=== PATIENT | female | born 1940 | race Two or more races ===

== ENCOUNTER 2025-03-15 09:35 | Inpatient (IN) | payer OTHER, MEDICAID ==
[~2025-03-15] VITALS: Ht 152.4 cm; Wt 106.6 kg
[~2025-03-15 09:35] MED LIST: ALEN35TA18 PO; FERR1TAB17 PO; METF-1145 PO; VENL37.588 PO
[2025-03-15 09:45] VITALS: PULSE 95; RESP 10; O2SAT 88
[2025-03-15] MEDS: IPRATROPIUM BROM 0.5 MG/2.5ML INH SOL NEB ONE ×2 (09:48→09:49)
[2025-03-15] MEDS: ALBUTEROL SULF 2.5 MG/0.5ML(0.5%) NEB SOLN NEB ONE ×3 (09:49→11:19)
--- NOTE | 2025-03-15 09:49 | ED.PDOC ---
History of Present Illness HPI Comments 84-year-old female brought in by ambulance with prior history of hypertension, diabetes and chief complaint of shortness a breath. The patient was picked up from home. EMS report the on scene the daughter the patient Arana that the patient in his training stroke of he breathe for 1 hour and was recently d iagnosed with pneumonia. On scene the patient on 5L of home O2 of the saturation percentage of 70% NC, stated I feel like I am drowning with hypertension of the systolic 171. EMS know that the patient was only able to say 1 or 2 words on scene, as well as having wheezing. EMS state that the patient noted that she feels like she is drowning when she lays down. EN route the patient was given a CPAP on the marrow sitting and does saturation patient is improved to 92%, also with an IV established. Denies chills, fever, N/V/D, CP. No other associated symptoms, modifiers, recent injuries or sick contacts present at this time. Time Seen by MD: 09:40 Reviewed Notes: Nurses Notes, Last Sawyer Notes, Medications, Allergies Allergies: Coded Allergies: NO KNOWN ALLERGIES (Unverified , 03/15/25) Home Meds Reported Medications Glimepiride (Glimepiride) 2 Mg Tab, 1 TAB PO BID 03/15/25 Atorvastatin Calcium (ATORVASTATIN CALCIUM) 10 Mg Tab, 1 TAB PO DAILY 03/15/25 Empagliflozin (Jardiance) 25 Mg Tab, 1 TAB PO DAILY 03/15/25 Levothyroxine Sodium (Levothyroxine Sodium) 125 Mcg Tab, 1 TAB PO DAILY 03/15/25 Information Source: Emergency Med Personnel Mode of Arrival: EMS Severity: Moderate Timing: Minutes Duration: Since onset Prehospital treatment: C-Pap Past Medical History PAST MEDICAL HISTORY: DM, HTN Surgical History: Denies all surgeries TRAINING AND DEVELOPMENT ASSISTANT History: No Pertinent TRAINING AND DEVELOPMENT ASSISTANT History Family History Family History: Reviewed,noncontributory to illness, Unknown Social History Smoker: Non-Smoker Alcohol: Denies ETOH Use Drugs: Denies Drug Use Lives In: Home Constitutional: denies: chills, diaphoresis, fatigue, fever, malaise, sweats, weakness, others EENTM: denies: blurred vision, double vision, ear bleeding, ear discharge, ear drainage, ear pain, ear ringing, eye pain, eye redness, hearing loss, mouth pain, mouth swelling, nasal discharge, nose bleeding, nose congestion, nose pain, photophobia, tearing, throat pain, throat swelling, voice changes, others Respiratory: reports: shortness of breath, wheezing; denies: cough, hemoptysis, orthopnea, SOB at rest, SOB with excertion, stridor, others Cardiovascular: denies: chest pain, dizzy spells, diaphoresis, Dyspnea on ex ertion, edema, irregular heart beat, left arm pain, lightheadedness, palpitations, PND, syncope, others Gastrointestinal: denies: abdomen distended, abdominal pain, blood streaked bowels, constipated, diarrhea, dysphagia, difficulty swallowing, hematemesis, melena, nausea, poor appetite, poor fluid intake, rectal bleeding, rectal pain, vomiting, others Genitourinary: denies: abnormal vagina bleeding, burning, dyspareunia, dysuria, flank pain, frequency, hematuria, incontinence, pain, , vagina discharge, urgency, others Neurological: denies: dizziness, fainting, headache, left sided numbness, left sided weakness, numbness, paresthesia, pre-existing deficit, right sided numbness, right sided weakness, seizure, speech problems, tingling, tremors, weakness, others Musculoskeletal: denies: back pain, gout, joint pain, joint swelling, muscle pain, muscle stiffness, neck pain, others Integumetry: denies: bruises, change in color, change in hair/nails, dryness, laceration, lesions, lumps, rash, wounds, others Allergic/Immunocompromised: denies: Difficulty Healing, Frequent Infections, Hives, Itching, others Hematologic/Lymphatic: denies: anemia, blood clots, easy bleeding, easy bruising, swollen glands, others Endocrine: denies: excessive hunger, excessive sweating, excessive thirst, excessive urination, flushing, intolerance to cold, intolerance to heat, unexplained weight gain, unexplained weight loss, others Psychiatric: denies: anxiety, bipolar disorder, depression, hopeless, panic disorder, schizophrenia, sleepless, suicidal, others All Other Systems: Reviewed and Negative Physical Exam General Appearance: Moderate Distress, Normal HEENT: Normal ENT Inspection, Pharynx Normal, TMs Normal Neck: Full Range of Motion, Non-Tender, Normal, Normal Inspection Respiratory: Accessory Muscle Use, Chest Non-Tender, Respiratory Distress, Other (Coarse breath sounds) Cardiovascular: No Edema, No JVD, No Murmur, No Gallop, Normal Peripheral Pulses, Regular Rate/Rhythm Breast Exam: Deferred Gastrointestinal: No Organomegaly, Non Tender, No Pulsatile Mass, Normal Bowel Sounds, Soft Genitalia: Deferred Pelvic: Deferred Rectal: Deferred Extremities: No calf tenderness, Normal capillary refill, Normal inspection, Normal range of motion, Non-tender, No pedal edema Musculoskeletal : Apperance: Normal Neurologic: Alert, commercial director II-XII nml as Tested, No Motor Deficits, Normal Affect, Normal Mood, No Sensory Deficits Cerebellar Function: NOT DONE Reflexes: NOT DONE Skin: Dry, Normal Color, Warm Peripheral Pulses: 3+ Radial (R), 3+ Radial (L) Lymphatic: No Adenopathy Was a procedure done? Was a procedure done?: No Differential Dx Considerations may include: Pneumonia Electrolyte imbalance X-Ray, Labs, Meds, VS Vital Signs Date Time Temp Pulse Resp B/P (MAP) Pulse Ox O2 Delivery O2 Flow Rate FiO2 03/15/25 13:01 62 17 150/83 (105) 95 03/15/25 11:19 16 92 Oxymizer 5 N/A 03/15/25 11:00 98.5 57 11 153/48 (83) 95 98.5 03/15/25 10:42 55 03/15/25 10:02 146/51 03/15/25 09:49 16 94 Oxymizer 6 N/A 03/15/25 09:45 98.0 95 10 158/75 (102) 88 98.0 03/15/25 09:45 95 10 88 Oxymizer 6 N/A 03/15/25 09:36 98.7 65 24 158/75 (102) 100 98.7 Lab Test 03/15/25 13:18 03/15/25 11:26 03/15/25 11:07 03/15/25 10:43 Range/Units Troponin I High Sensitivity 22 20 </=34 ng/L POC Glucose 106 70-106 mg/dl Urine Color Light-yellow Yellow Urine Clarity Clear Clear Urine pH 5.5 5.0-9.0 Urine Specific Silva 1.012 1.001-1.035 Urine Protein Negative Negative Urine Ketones Negative Negative Urine Blood Negative Negative /uL Urine Nitrite Negative Negative Urine Bilirubin Negative Negative Urine Urobilinogen Normal Negative mg/dL Urine Leukocyte Esterase Negative Negative /uL Urine RBC None seen 0 - 4 /hpf Urine Microscopic WBC < 1 0-5 /HPF Urine Squamous Epithelial Cells None seen <5 /hpf Urine Bacteria None seen None Seen /hpf Urine Glucose Trace Normal mg/dL Test 03/15/25 10:05 03/15/25 09:55 Range/Units Blood Gas Specimen Type Arterial Blood Gas Sample Site Left radial Blood Gas Patient Temperature 37.0 Arterial Blood Date Drawn [id number] Arterial Blood pH 7.353 7.350-7.450 Arterial Blood Partial Pressure CO2 51.9 H 32.0-45.0 mmHg Arterial Blood Partial Pressure O2 71.6 L 83.0-108.0 mmHg Arterial Blood HCO3 28.2 H 21.0-28.0 mmol/L Arterial Blood Oxygen Saturation 91.2 L 94.0-98.0 % Arterial Blood Base Excess 2.3 -2.0-3.0 mmol/L Arterial Blood Oxyhemoglobin 89.1 L 94.0-98.0 % Arterial Blood Carboxyhemoglobin 2.0 H 0.5-1.5 % Arterial Blood Methemoglobin 0.3 0.0-1.5 % Ernesto Test Yes Blood Gas Total Hemoglobin 7.50 L 12.0-16.0 g/dL Blood Gas Liter Flow 6.00 Blood Gas Modality Oxymizer FiO2 % 52.0 White Blood Count 1.4 *L 4.4-10.8 10^3/uL Red Blood Count 1.90 L 4.0-5.20 10^6/uL Hemoglobin 7.1 L 12.2-16.2 g/dL Hematocrit 21.3 L 36.0-46.0 % Mean Corpuscular Volume 112.0 H 80.0-100.0 fL Mean Corpuscular Hemoglobin 37.1 H 28.0-32.0 pg Mean Corpuscular Hemoglobin Concent 33.2 32.0-36.0 g/dL Red Cell Distribution Width 16.9 H 11.8-14.3 % Platelet Count 232 140-450 10^3/uL Mean Platelet Volume 8.5 6.9-10.8 fL Neutrophils (%) (Auto) 37.0-80.0 % Lymphocytes (%) (Auto) 10.0-50.0 % Monocytes (%) (Auto) 0.0-12.0 % Basophils (%) (Auto) 0.0-2.0 % Neutrophils # (Auto) 1.6-8.6 10 ^3/uL Lymphocytes # (Auto) 0.4-5.4 10 ^3/uL Monocytes # (Auto) 0-1.3 10 ^3/uL Differential Total Cells Counted 100.0 100 Neutrophils % (Manual) 55 37.0-80.0 Band Neutrophils % (Manual) 2 Lymphocytes % (Manual) 40 10.0-50.0 Monocytes % (Manual) 3 0-12 Eosinophils % (Manual) 0 0-7 Basophils % (Manual) 0 0.0-2.0 Metamyelocytes % (manual) 0 Myelocytes % (Manual) 0 Promyelocytes % (Manual) 0 Blast Cells % (Manual) 0 Reactive Lymphocytes 0 Platelet Estimate Adequate Macrocytosis Slight Sodium Level 134 L 136-145 mmol/L Potassium Level 5.4 H 3.5-5.1 mmol/L Chloride Level 98 98-107 mmol/L Carbon Dioxide Level 27 20-31 mmol/L Anion Gap 9 5-15 Blood Urea Nitrogen 43 H 9-23 mg/dL Creatinine 2.55 H 0.550-1.02 mg/dL Glomerular Filtration Rate Calc 18 >90 mL/min BUN/Creatinine Ratio 16.9 10.0-20.0 Serum Glucose 76 74-106 mg/dL Hemoglobin A1c 5.5 <5.7 % A1C Lactic Acid Level 1.3 0.4-2.0 mmol/L Calcium Level 9.1 8.7-10.4 mg/dL Troponin I High Sensitivity 22 </=34 ng/L B-Type Natriuretic Peptide 529.94 0-100 pg/mL Triglycerides Level Pending Cholesterol Level Pending LDL Cholesterol Pending HDL Cholesterol Pending Thyroid Stimulating Hormone (TSH) 3.37 0.55-4.78 uIU/mL Current Medications Medications (Trade) Dose Ordered Sig/Johanne Route Start Time Stop Time Status Last Admin Magnesium Sulfate/ Dextrose 100 ml @ 100 mls/hr ONCE ONCE IV 03/15/25 09:45 03/15/25 10:44 DC 03/15/25 10:35 Methylprednisolone Sodium Succinate (Solu Medrol) 125 mg ONCE ONCE IV 03/15/25 09:45 03/15/25 09:46 DC 03/15/25 10:02 Albuterol (Ventolin Medneb) 5 mg ONCE ONCE NEB 03/15/25 09:45 03/15/25 09:46 DC 03/15/25 09:49 Ipratropium [place] (Atrovent Medneb) 0.5 mg ONCE ONCE NEB 03/15/25 09:45 03/15/25 09:46 DC 03/15/25 09:48 Furosemide (Lasix Injection) 40 mg ONCE ONCE IV 03/15/25 09:45 03/15/25 09:46 DC 03/15/25 10:02 Ceftriaxone Sodium 50 ml @ 100 mls/hr ONCE ONCE IV 03/15/25 10:45 03/15/25 11:14 DC 03/15/25 11:04 Azithromycin 250 ml @ 125 mls/hr ONCE ONCE IV 03/15/25 10:45 03/15/25 12:44 DC 03/15/25 11:40 Insulin Human Regular (InsuLIN R) 10 units ONCE ONCE IV 03/15/25 11:15 03/15/25 11:16 DC 03/15/25 12:17 Dextrose 50 ml ONCE ONCE IV 03/15/25 11:15 03/15/25 11:16 DC 03/15/25 12:16 Albuterol (Ventolin Medneb) 20 mg ONCE ONCE NEB 03/15/25 11:15 03/15/25 11:16 DC 03/15/25 11:19 Sodium Bicarbonate 50 ml ONCE ONCE IV 03/15/25 11:15 03/15/25 11:16 DC 03/15/25 12:07 Calcium Gluconate/ Sodium Chloride 50 ml @ 120 mls/hr ONCE ONCE IV 03/15/25 11:15 03/15/25 11:39 DC 03/15/25 11:40 Zirconium Oxide (Lokelma) 10 gm ONCE ONCE PO 03/15/25 11:15 03/15/25 11:16 DC 03/15/25 12:08 Patient alert. Shortness a breath. Using accessory muscles. BNP elevated. Potassium elevated. Kidney function elevated. Sepsis protocol. Blood culture lactic acid. Was given Rocephin azithromycin. Reviewed her history. Continue monitoring. [address] [address] Ph: [phone] DIAGNOSTIC IMAGING Diagnostic Imaging Report : [id number] Signed PATIENT: ADRIANA GARCIA ACCT: [id number] UNIT: [id number] : 1940 LOC: ER ROOM / BED: / AGE / SEX: 84 / F ADM STATUS: REG ER SERVICE 0940 ORDERING PHYSICIAN: JANIE CARRINGTON MD PROCEDURE(s): CXRP - CHEST PORTABLE REASON: sob ORDER NUMBER(s): [id number], ACCESSION NUMBER(s): [id number] XY CHEST PORTABLE, HISTORY: sob COMPARISON: None None TECHNICAL DATA: 1 view of the chest was obtained. FINDINGS: Lines and tubes: None Cardiomediastinal silhouette: enlarged Pulmonary vasculature: normal Lung expansion: normal Lung airspace: normal Lung interstitium: prominent Pleura: normal Pneumothorax: no Bones: Unremarkable Other: no IMPRESSION: Cardiomegaly with interstitial pulmonary edema. ATED BY: YOHAN OSULLIVAN MD DICTATED DATE/TIME: 03/15/25 102 SIGNED BY: YOHAN OSULLIVAN MD SIGNED DATE/TIME: 03/15/25 1022 CC: Time of 1ST Reevaluation: 10:10 Reevaluation 1ST: Unchanged Patient Education/Counseling: Diagnosis, Treatment, Prognosis Family Education/Counseling: No Family Present Sepsis Sepsis Reasesment Focused Exam Orders: Laboratory Tests 03/15/25 09:55: Lactic Acid Level 1.3 Departure 1 Departure Time of Disposition: 11:07 Impression: Primary Impression: Acute respiratory failure Qualified Codes: J96.01 - Acute respiratory failure with hypoxia Additional Impressions: Sepsis Qualified Codes: A41.9 - Sepsis, unspecified organism Hyperkalemia Disposition: ADMITTED INPATIENT Admit to: ICU Condition: Guarded Critical Care Note Critical Care Time?: Yes (90 min-critical care time only) Stability Stability form required: No Heart Score Heart Score: Heart Score Response (Comments) Value History Slightly Suspicious 0 EKG Normal 0 Age <45 0 Risk Factors No known risk factors 0 Troponin Normal limit 0 Total 0 I personally scribed for JANIE CARRINGTON MD ([email or web address]) on 03/15/25 at 09:49. Electronically submitted by Evan Potter ([email or web address]). I personally scribed for JANIE CARRINGTON MD ([email or web address]) on 03/15/25 at 11:19. Electronically submitted by Evan Potter ([email or web address]). JANIE CARRINGTON MD March 15, 2025 09:49
[2025-03-15] MEDS: FUROSEMIDE 40 MG/4 ML VIAL IV ONE (10:02)
[2025-03-15] MEDS: methylPREDNISolone SOD SUCC 125 MG/2 ML VL IV ONE (10:02)
[2025-03-15 10:13] LABS: Base Excess 2.3 mmol/L (-2.0-3.0)
[2025-03-15 10:20] LABS: Chloride 98 mmol/L (98-107)
[2025-03-15 10:21] LABS: Anion Gap 9 (5-15); Carbon Dioxide 27 mmol/L (20-31); Hematocrit 21.3 % (36.0-46.0); Hemoglobin 7.1 g/dL (12.2-16.2); Mean Corpuscular Hemoglobin 37.1 pg (28.0-32.0); Mean Corpuscular Hgb Conc. 33.2 g/dL (32.0-36.0); Platelet Count (auto) 232 10^3/uL (140-450); Red Cell Distribution Width 16.9 % (11.8-14.3)
[2025-03-15 10:22] LABS: Calcium 9.1 mg/dL (8.7-10.4)
--- NOTE | 2025-03-15 10:24 | DVH ---
XY CHEST PORTABLE, HISTORY: sob COMPARISON: None None TECHNICAL DATA: 1 view of the chest was obtained. FINDINGS: Lines and tubes: None Cardiomediastinal silhouette: enlarged Pulmonary vasculature: normal Lung expansion: normal Lung airspace: normal Lung interstitium: prominent Pleura: normal Pneumothorax: no Bones: Unremarkable Other: no IMPRESSION: Cardiomegaly with interstitial pulmonary edema.
[2025-03-15 10:27] LABS: Glucose 76 mg/dL (74-106); White Blood Cell 1.4 10^3/uL (4.4-10.8)
[2025-03-15 10:28] LABS: Basophils % (manual) 0 (0.0-2.0); Blast Cells 0; Blood Urea Nitrogen 43 mg/dL (9-23); Eosinophils % (manual) 0 (0-7); Metamyelocytes % 0; Myelocytes % 0; Potassium 5.4 mmol/L (3.5-5.1); Promyelocytes % 0; Reactive Lymphocytes 0; Sodium 134 mmol/L (136-145)
[2025-03-15] MEDS: MAGNESIUM SULFATE 1GM/100ML 100 ML IV ONE (10:35)
[2025-03-15 10:38] LABS: BUN/Creatinine Ratio 16.9 (10.0-20.0)
[2025-03-15 10:48] LABS: Urine Bacteria None Seen /hpf (None Seen)
[2025-03-15] MEDS: cefTRIAXone 1GM/50ML D5W 50 ML IV ONE (11:04)
[2025-03-15 11:38] LABS: Urine Blood Negative /uL (Negative); Urine Clarity Clear (Clear); Urine Color Light-Yellow (Yellow); Urine Protein, UAD Negative (Negative); Urine Specific Gravity 1.012 (1.001-1.035); Urine Squamous Epithelial Cell None Seen /hpf (<5); Urine Urobilinogen Normal (Negative); Urine WBC < 1 /HPF (0-5); Urine pH 5.5 (5.0-9.0)
[2025-03-15] MEDS: AZITHROMYCIN 500MG/ 250ML 250 ML IV ONE (11:40)
[2025-03-15] MEDS: CALCIUM GLUC 1,000mg/50ml-NS 50 ML IV ONE (11:40)
[2025-03-15 12:04] LABS: Band Neutrophils % (manual) 2; Lymphocytes % (manual) 40 (10.0-50.0); Macrocytosis Slight; Monocytes % (manual) 3 (0-12); Platelet Estimate Adequate
[2025-03-15] MEDS: SODIUM BICARB 8.4% 50Meq/50ml SYR INJ IV ONE (12:07)
[2025-03-15] MEDS: SODIUM ZIRCONIUM CYCL 10 GM PAK PO ONE (12:08)
[2025-03-15] MEDS: DEXTROSE (50%) 50ML SYRG IV ONE (12:16)
[2025-03-15] MEDS: InsuLIN REG 1unit/0.01ml Soln (100units/ml) IV ONE (12:17)
--- NOTE | 2025-03-15 13:55 | DVHHP2 ---
History of Present Illness Reason for Visit: Shortness of breath History of Present Illness An 84-year-old female presents to the ED via EMS with a chief complaint of shortness of breath. According to the daughter at the bedside, the patient developed acute dyspnea and was noted to be hypoxemic, prompting a call to EMS. The patient was recently diagnosed with pneumonia and was placed on CPAP during transport, which improve her oxygen saturation. The daughter also reports recent change in mentation. Upon reviewing medical records the patient was prescribed Eliquis but daughter does not know why the patient is taking Eliquis. Significant past medical history of hypertension, diabetes, recent pneumonia and obesity. Past Medical History As stated in HPI Past Surgical History Denies Family History Reviewed, non-contributory to the management of this case. Past Social History The patient lives at home, denies smoking, alcohol or illicit drugs abuse. Review of Systems Constitutional: Yes: Weakness, Malaise; No: Fever, Chills, Sweats, Other Eyes: No: Pain, Vision change, Conjunctivae inflammation, Eyelid inflammation, Other, Redness ENT: No: Ear pain, Ear discharge, Nose pain, Nose discharge, Nose congestion, Mouth pain, Mouth swelling, Throat pain, Throat swelling, Other Respiratory: Shortness of breath, SOB with excertion; No: Cough, Dry, Wheezing, Hemoptysis, Pleuritic Pain, Sputum, Wheezing, Other Cardiovascular: No: Chest Pain, Palpitations, Orthopnea, Paroxysmal Noc. Dyspnea, Edema, Lt Headedness, Other Gastrointestinal: No: Nausea, Vomiting, Abdominal Pain, Diarrhea, Constipation, Melena, Hematochezia, Other Genitourinary: No Dysuria, No Frequency, No Incontinence, No Hematuria, No Retention, No Other Musculoskeletal: No: other, neck pain, shoulder pain, arm pain, back pain, hand pain, leg pain, foot pain Skin: No: Rash, Lesions, Jaundice, Bruising, Other Neurological: Confusion Allergies: Coded Allergies: NO KNOWN ALLERGIES (Unverified , 03/15/25) Exam Vital Signs Vital Signs Date Time Temp Pulse Resp B/P (MAP) Pulse Ox O2 Delivery O2 Flow Rate FiO2 03/15/25 13:01 62 17 150/83 (105) 95 03/15/25 11:19 Oxymizer 5 N/A 03/15/25 11:00 98.5 98.5 General Appearance: Alert, mild distress HEENT: Atraumatic, PERRLA, EOMI Respiratory: Other (Diminished lung sounds) Cardiovascular: Regular rate, Normal S1, Normal S2 Abdominal: Soft Extremities: No clubbing, No cyanosis, No edema Skin: No rashes, No breakdown Labs/Xrays Labs Test 03/15/25 13:18 03/15/25 11:26 03/15/25 10:43 03/15/25 10:05 Range/Units POC Glucose 106 70-106 mg/dl Urine Color Light-yellow Yellow Urine Clarity Clear Clear Urine pH 5.5 5.0-9.0 Urine Specific [place] 1.012 1.001-1.035 Urine Protein Negative Negative Urine Ketones Negative Negative Urine Blood Negative Negative /uL Urine Nitrite Negative Negative Urine Bilirubin Negative Negative Urine Urobilinogen Normal Negative mg/dL Urine Leukocyte Esterase Negative Negative /uL Urine RBC None seen 0 - 4 /hpf Urine Microscopic WBC < 1 0-5 /HPF Urine Squamous Epithelial Cells None seen <5 /hpf Urine Bacteria None seen None Seen /hpf Urine Glucose Trace Normal mg/dL Blood Gas Specimen Type Arterial Blood Gas Sample Site Left radial Blood Gas Patient Temperature 37.0 Arterial Blood Date Drawn [id number] Arterial Blood pH 7.353 7.350-7.450 Arterial Blood Partial Pressure CO2 51.9 H 32.0-45.0 mmHg Arterial Blood Partial Pressure O2 71.6 L 83.0-108.0 mmHg Arterial Blood HCO3 28.2 H 21.0-28.0 mmol/L Arterial Blood Oxygen Saturation 91.2 L 94.0-98.0 % Arterial Blood Base Excess 2.3 -2.0-3.0 mmol/L Arterial Blood Oxyhemoglobin 89.1 L 94.0-98.0 % Arterial Blood Carboxyhemoglobin 2.0 H 0.5-1.5 % Arterial Blood Methemoglobin 0.3 0.0-1.5 % Ernesto Test Yes Blood Gas Total Hemoglobin 7.50 L 12.0-16.0 g/dL Blood Gas Liter Flow 6.00 Blood Gas Modality Oxymizer FiO2 % 52.0 Test 03/15/25 09:55 Range/Units White Blood Count 1.4 *L 4.4-10.8 10^3/uL Red Blood Count 1.90 L 4.0-5.20 10^6/uL Hemoglobin 7.1 L 12.2-16.2 g/dL Hematocrit 21.3 L 36.0-46.0 % Mean Corpuscular Volume 112.0 H 80.0-100.0 fL Mean Corpuscular Hemoglobin 37.1 H 28.0-32.0 pg Mean Corpuscular Hemoglobin Concent 33.2 32.0-36.0 g/dL Red Cell Distribution Width 16.9 H 11.8-14.3 % Platelet Count 232 140-450 10^3/uL Mean Platelet Volume 8.5 6.9-10.8 fL Neutrophils (%) (Auto) 37.0-80.0 % Lymphocytes (%) (Auto) 10.0-50.0 % Monocytes (%) (Auto) 0.0-12.0 % Basophils (%) (Auto) 0.0-2.0 % Neutrophils # (Auto) 1.6-8.6 10 ^3/uL Lymphocytes # (Auto) 0.4-5.4 10 ^3/uL Monocytes # (Auto) 0-1.3 10 ^3/uL Differential Total Cells Counted 100.0 100 Neutrophils % (Manual) 55 37.0-80.0 Band Neutrophils % (Manual) 2 Lymphocytes % (Manual) 40 10.0-50.0 Monocytes % (Manual) 3 0-12 Eosinophils % (Manual) 0 0-7 Basophils % (Manual) 0 0.0-2.0 Metamyelocytes % (manual) 0 Myelocytes % (Manual) 0 Promyelocytes % (Manual) 0 Blast Cells % (Manual) 0 Reactive Lymphocytes 0 Platelet Estimate Adequate Macrocytosis Slight Sodium Level 134 L 136-145 mmol/L Potassium Level 5.4 H 3.5-5.1 mmol/L Chloride Level 98 98-107 mmol/L Carbon Dioxide Level 27 20-31 mmol/L Anion Gap 9 5-15 Blood Urea Nitrogen 43 H 9-23 mg/dL Creatinine 2.55 H 0.550-1.02 mg/dL Glomerular Filtration Rate Calc 18 >90 mL/min BUN/Creatinine Ratio 16.9 10.0-20.0 Serum Glucose 76 74-106 mg/dL Lactic Acid Level 1.3 0.4-2.0 mmol/L Calcium Level 9.1 8.7-10.4 mg/dL B-Type Natriuretic Peptide 529.94 0-100 pg/mL PROCEDURE(s): CXRP - CHEST PORTABLE REASON: sob ORDER NUMBER(s): [id number], ACCESSION NUMBER(s): [id number] XY CHEST PORTABLE, HISTORY: sob COMPARISON: None None TECHNICAL DATA: 1 view of the chest was obtained. FINDINGS: Lines and tubes: None Cardiomediastinal silhouette: enlarged Pulmonary vasculature: normal Lung expansion: normal Lung airspace: normal Lung interstitium: prominent Pleura: normal Pneumothorax: no Bones: Unremarkable Other: no IMPRESSION: Cardiomegaly with interstitial pulmonary edema. Assessment/Plan Assessment/Plan # acute hypoxic respiratory failure # possible pneumonia # rule out sepsis # acute aloc Admit to telemetry O2 supplement DuoNeb Empiric antibiotics Blood and sputum culture CT head # cardiomegaly with pulmonary edema IV Lasix Echocardiogram Monitor for overload # NAHUN on CKD IV Soft IV fluid Consider Nephrology if kidney does not improve # hypothyroidism Levothyroxine Check thyroid function # hyperlipidemia Statins Check lipid panel # diabetes type 2 Insulin sliding scale Glimepiride Check A1c # obesity DVT prophylaxis Medical plan discussed with patient and daughter at the bedside Plan discussed with: Patient Date of Service: March 15, 2025 Billing Provider: EBONY HOLCOMB Common Visit Codes: [id number] INP/OBS CARE (HIGH) EOBNY HOLCOMB March 15, 2025 13:55
[2025-03-15] MEDS ORDERED: IPRATROPIUM BROM 0.5 MG/2.5ML INH SOL NEB PRN (14:00)
[2025-03-15] MEDS ORDERED: DEXTROSE (50%) 50ML SYRG IV PRN (14:00)
[2025-03-15] MEDS ORDERED: NITROGLYCERIN 0.4 MG SL TAB SL PRN (14:00)
[2025-03-15] MEDS ORDERED: MORPHINE SULFATE INJ 2 MG/ml SYRG IV PRN (14:00)
[2025-03-15] MEDS ORDERED: ALBUTEROL SULF 2.5 MG/0.5ML(0.5%) NEB SOLN NEB PRN (14:00)
[2025-03-15 14:08] VITALS: BP 150/83; PULSE 62; RESP 16; TEMP 98.5; O2SAT 94
[2025-03-15] MEDS: ENOXAPARIN SOD 30 MG/0.3 ML SYRINGE SC SCH (14:14)
[2025-03-15] MEDS ORDERED: hydrALAZINE HCL 20 MG/ML VL IV PRN (16:15)
[2025-03-15] MEDS ORDERED: LEVO125T7 PO (16:21)
[2025-03-15] MEDS ORDERED: GLIM2TAB94 PO (16:21)
[2025-03-15] MEDS ORDERED: EMPA1TAB3 PO (16:21)
[2025-03-15] MEDS ORDERED: ATOR10TA52 PO (16:21)
[2025-03-15] MEDS: ACCU-CHEK COMFORT CURVE STRIP VI SCH (17:13)
--- NOTE | 2025-03-15 17:13 | DVH ---
EXAM: CT HEAD WITHOUT CONTRAST INDICATION: aloc TECHNIQUE: CT of the head without intravenous contrast. Radiation Dose : 1. Head: CT Dose: CTDI volume is 60.11 mGy. Dose-length product is 963.41 mGy*cm The dose indicators for CT are the volume Computed Tomography (CT) Dose Index (CTDIvol) and the Dose Length Product (DLP), and are measured in units of mGy and mGy-cm, respectively. These indicators are not patient dose, but values generated from the CT scanner acquisition factors. The report includes radiation exposure data for exposures received during this examination. COMPARISON: None FINDINGS: There is no evidence of acute intracranial hemorrhage, extra-axial collection, mass effect, midline s hift, herniation or hydrocephalus. The ventricles, sulci and cisterns are age appropriate. The gonzalez-white differentiation is intact. Patchy periventricular and subcortical white matter hypoattenuation is nonspecific but may be related to small vessel ischemic disease. The visualized paranasal sinuses and mastoid air cells are clear. The surrounding soft tissues and osseous structures are unremarkable. IMPRESSION: 1. No acute intracranial abnormality. Radiation optimization: All CT scans at this facility use at least one of these dose optimization sierra hniques: automated exposure control mA and/or kV adjustment per patient size (includes targeted exam s where dose is matched to clinical indication) or iterative reconstruction.
[2025-03-15] MEDS: InsuLIN REG 1unit/0.01ml Soln (100units/ml) SC SCH (17:17)
[2025-03-15] MEDS: SODIUM CHLORIDE 0.9% 1,000 ML IV SCH (17:30)
[2025-03-15] MEDS: FUROSEMIDE 20 MG/2 ML VIAL IV ONE (17:34)
[2025-03-15] MEDS: ALBUTEROL SULF 2.5 MG/0.5ML(0.5%) NEB SOLN NEB SCH (17:47)
[2025-03-15] MEDS: IPRATROPIUM BROM 0.5 MG/2.5ML INH SOL NEB SCH (17:47)
[2025-03-15 17:49] VITALS: O2SAT 95
[2025-03-15 17:50] LABS: Triglycerides 102 mg/dL (< 150)
[2025-03-15 17:51] LABS: LDL Cholesterol 66 mg/dL (< 100)
[2025-03-15 17:53] LABS: Cholesterol 113 mg/dL (< 200)
[2025-03-15 18:38] LABS: HDL Cholesterol 30 mg/dL (40-59)
[2025-03-15 19:30] VITALS: RESP 19; O2SAT 96
[2025-03-15] MEDS: GLIMEPIRIDE 2 MG TAB PO SCH (23:56)
[2025-03-15] MEDS: ATORVASTATIN 20 MG TAB PO SCH (23:57)
[2025-03-16] VITALS (15 sets, daily range): BP systolic 132–155; BP diastolic 35–46; PULSE 48–90; RESP 13–20; TEMP 97.6–98.5; O2SAT 91–100
[2025-03-16 05:20] LABS: Basophils # (auto) 0 10 ^3/uL (0-0.2); Basophils % (auto) 0.4 % (0.0-2.0); Eosinophils # (auto) 0 10 ^3/uL (0-0.8); Eosinophils % (auto) 0.6 % (0.0-7.0); Hematocrit 19.9 % (36.0-46.0); Lymphocytes # (auto) 0.5 10 ^3/uL (0.4-5.4); Lymphocytes % (auto) 45.8 % (10.0-50.0); Mean Corpuscular Hemoglobin 36.6 pg (28.0-32.0); Mean Corpuscular Hgb Conc. 33.4 g/dL (32.0-36.0); Mean Corpuscular Volume 109.8 fL (80.0-100.0); Monocytes # (auto) 0.1 10 ^3/uL (0-1.3); Monocytes % (auto) 5.8 % (0.0-12.0); Neutrophils # (auto) 0.5 10 ^3/uL (1.6-8.6); Neutrophils % (auto) 47.4 % (37.0-80.0); Nucleated Red Blood Cells % 0.8 %; Platelet Count (auto) 222 10^3/uL (140-450); Red Blood Cells 1.81 10^6/uL (4.0-5.20); Red Cell Distribution Width 16.7 % (11.8-14.3)
[2025-03-16 05:23] LABS: White Blood Cell 1.1 10^3/uL (4.4-10.8)
[2025-03-16 05:28] LABS: Hemoglobin 6.6 g/dL (12.2-16.2)
[2025-03-16 05:32] LABS: Alanine Aminotransferase 12 U/L (7-40); Alkaline Phosphatase 55 U/L (46-116); Anion Gap 7 (5-15); BUN/Creatinine Ratio 17.6 (10.0-20.0); Calcium 9.1 mg/dL (8.7-10.4); Potassium 4.6 mmol/L (3.5-5.1); Sodium 137 mmol/L (136-145); Total Protein 6.7 g/dL (5.7-8.2)
[2025-03-16 05:37] LABS: Aspartate Aminotransferase < 8 U/L (13-40); Blood Urea Nitrogen 42 mg/dL (9-23); Carbon Dioxide 32 mmol/L (20-31); Chloride 98 mmol/L (98-107); Glucose 57 mg/dL (74-106)
[2025-03-16 05:46] LABS: Bilirubin, Total 0.4 mg/dL (0.2-1.0)
[2025-03-16 05:53] LABS: Macrocytosis Slight; Platelet Estimate Adequate
[2025-03-16] MEDS ORDERED: APIX2.5T PO (09:18)
[2025-03-16] MEDS: cefTRIAXone 1GM/50ML D5W 50 ML IV SCH (09:19)
[2025-03-16] MEDS: EMPAGLIFLOZIN 10 MG TAB PO SCH (11:09)
[2025-03-16] MEDS: FUROSEMIDE 20 MG/2 ML VIAL IV SCH (11:10)
[2025-03-16] MEDS: LEVOTHYROXINE SODIUM 100 MCG TAB PO SCH (11:17)
[2025-03-16] MEDS: LEVOTHYROXINE SODIUM 25 MCG TAB PO SCH (11:18)
[2025-03-16] MEDS: AZITHROMYCIN 500MG/ 250ML 250 ML IV SCH (11:18)
--- NOTE | 2025-03-16 11:59 | DVHSR ---
APPROVED REPORT EXAM: Two-dimensional and M-mode echocardiogram with Doppler and color Doppler. Blood Pressure: 150/83 mmHg INDICATION Elevated BNP, Cardiomegaly RISK FACTORS Height: 60, Weight: 198 DIMENSIONS LVDd5.5 (3.8-5.7cm)LA (2D)4.7 (1.9-4.0cm)Aortic Root3.5 (2.0-3.7cm) LVDs3.5 (2.5-4.0cm)LA (MM) (1.9-4.0cm)Aortic Cusp Exc1.8 (1.5-2.0cm) EF (%) 65.0 (55-70%)Rt. Atrium4.5 (1.9-4.0cm)Asc. Aorta cm IVSd1.2 (0.7-1.1cm)RV (D) (1.8-2.4cm) PWd1.5 (0.7-1.1cm) Mitral Valve MitralMitral Stenosis E wave0.93m/sMV Mean GR.mmHg A wave0.82m/sMV Peak GR.mmHg E/A ratio1.12D MVAcm2 DECEL [id number] 1/2 [id number] IVRTmsDop MVA3.25cm2 Aortic Valve Aortic ValveAortic Stenosis V11.48m/Hood Mean GR.7mmHg V21.90m/Hood Peak GR.14mmHg LVOT Diameter1.9 (1.8-2.4cm)Doppler AVA2.21cm2 Pulmonic Valve V21.44m/s Tricuspid Valve TR Velocity3.26m/s [id number] Other Information Technically limited study due to body habitus and patient position. Patient was non compliant and r efused to follow directions. Conclusion Left ventricle: Mild concentric left ventricular hypertrophy was seen. The LVEF was around 65%. Th ere was no gross wall motion abnormality. Right ventricle was mildly dilated with normal systolic function. Both atria were mildly dilated. Aortic valve: Aortic valve was trileaflet. There was no aortic stenosis. There was trace aortic ins ufficiency. There was mild mitral/tricuspid regurgitation. There was trace pulmonary valve insuffic iency. Right ventricular systolic pressure was assessed at 60 mm Hg. There was no pericardial effusion.
--- NOTE | 2025-03-16 14:27 | DVHPN2 ---
Subjective The patient reporting having dizziness. Changes from previous H/P or p: Changes General: Per HPI Eyes: No Pain, No Vision change, No Conjunctivae inflammation, No Eyelid inflammation, No Other, No Redness ENT: No Ear pain, No Ear discharge, No Nose pain, No Nose discharge, No Nose congestion, No Mouth pain, No Mouth swelling, No Throat pain, No Throat swelling, No Other Cardiovascular: No Chest Pain, No Palpitations, No Orthopnea, No Paroxysmal Noc. Dyspnea, No Edema, No Lt Headedness, No Other Respiratory: No Cough, No Dry; Shortness of breath, SOB with excertion; No Wheezing, No Hemoptysis, No Pleuritic Pain, No Sputum, No Other Gastrointestinal: No Nausea, No Vomiting, No Abdominal Pain, No Diarrhea, No Constipation, No Melena, No Hematochezia, No Other Genitourinary: No Dysuria, No Frequency, No Incontinence, No Hematuria, No Retention, No Other Musculoskeletal: No other, No neck pain, No shoulder pain, No arm pain, No back pain, No hand pain, No leg pain, No foot pain Skin: No Rash, No Lesions, No Jaundice, No Bruising, No Other Objective Vitals Vital Signs Date Time Temp Pulse Resp B/P (MAP) Pulse Ox O2 Delivery O2 Flow Rate FiO2 03/16/25 12:56 58 03/16/25 12:35 97.6 13 140/36 97.6 03/16/25 11:34 95 03/16/25 11:23 Nasal Cannula 5.0 03/16/25 11:23 40 Intake/Output Intake and Output 03/16/25 07:00 Intake Total 570 ml Output Total 2700 ml Balance -2130 ml IV Total 570 ml Output Urine Total 2700 ml General Appearance: Alert, Oriented X3, Cooperative, mild distress HEENT: Atraumatic, PERRLA Lungs: Clear to auscultation, Normal air movement Cardiovascular: Normal S1, Normal S2 Abdomen: Normal bowel sounds Back: Flank Tenderness, Midline Tenderness Extremities: Normal pulses Neuro: Normal gait, Normal speech Skin: Dry, Intact Psych/Mental Status: Mental status NL, Mood NL Medications Current Medications Medications Dose Ordered Sig/Johanne Route Start Time Stop Time Status Last Admin Dose Admin Enoxaparin Sodium 30 mg DAILY SC 03/15/25 14:04 03/16/25 11:09 30 MG Nitroglycerin 0.4 mg Q5MINP PRN SL 03/15/25 14:00 Morphine Sulfate 2 mg Q30M PRN IV 03/15/25 14:00 Diagnostic Test (Pha) 1 strip ACHS 03/15/25 17:00 03/16/25 11:30 1 STRIP Insulin Human Regular ACHS SC 03/15/25 17:00 03/16/25 12:22 3 UNITS Dextrose 50 ml UD PRN IV 03/15/25 14:00 Ceftriaxone Sodium 50 ml @ 100 mls/hr DAILY@09 IV 03/16/25 09:00 03/16/25 09:19 100 MLS/HR Azithromycin 250 ml @ 125 mls/hr DAILY IV 03/16/25 10:00 03/16/25 11:18 125 MLS/HR Albuterol 2.5 mg Q4HPRN PRN NEB 03/15/25 14:00 Albuterol 2.5 mg Q6HR NEB 03/15/25 18:00 03/16/25 11:23 2.5 MG Ipratropium [place] 0.5 mg Q4HPRN PRN NEB 03/15/25 14:00 Ipratropium [place] 0.5 mg Q6HR NEB 03/15/25 18:00 03/16/25 11:23 0.5 MG Hydralazine HCl 10 mg Q6HP PRN IV 03/15/25 16:15 Furosemide 20 mg DAILY IV 03/16/25 10:00 03/16/25 11:10 20 MG Glimepiride 2 mg BID PO 03/15/25 22:00 03/16/25 12:08 2 MG Atorvastatin Calcium 10 mg HS PO 03/15/25 22:00 03/15/25 23:57 10 MG Empaglifozin 25 mg DAILY PO 03/16/25 10:00 03/16/25 11:09 25 MG Levothyroxine Sodium 100 mcg DAILY PO 03/16/25 10:00 03/16/25 11:17 100 MCG Sodium Chloride 1,000 ml @ 60 mls/hr [id number] IV 03/15/25 16:30 03/16/25 09:19 60 MLS/HR Levothyroxine Sodium 25 mcg DAILY PO 03/16/25 10:00 03/16/25 11:18 25 MCG Laboratory Results Laboratory Tests 03/16/25 04:55 Chemistry Test 03/16/25 04:55 Albumin 4.0 g/dL (3.2-4.8) Calcium Level 9.1 mg/dL (8.7-10.4) Total Protein 6.7 g/dL (5.7-8.2) LFT Test 03/16/25 04:55 Alanine Aminotransferase (ALT) 12 U/L (7-40) Alkaline Phosphatase 55 U/L (46-116) Aspartate Amino Transferase (AST) < 8 U/L (13-40) L Total Bilirubin 0.4 mg/dL (0.2-1.0) Urinalysis Test 03/15/25 10:43 Urine Color Light-yellow (Yellow) Urine Clarity Clear (Clear) Urine pH 5.5 (5.0-9.0) Urine Specific [place] 1.012 (1.001-1.035) Urine Protein Negative (Negative) Urine Ketones Negative (Negative) Urine Blood Negative /uL (Negative) Urine Nitrite Negative (Negative) Urine Bilirubin Negative (Negative) Urine Urobilinogen Normal mg/dL (Negative) Urine Leukocyte Esterase Negative /uL (Negative) Urine RBC None seen /hpf (0 - 4) Urine Microscopic WBC < 1 /HPF (0-5) Urine Squamous Epithelial Cells None seen /hpf (<5) Urine Bacteria None seen /hpf (None Seen) Urine Glucose Trace mg/dL (Normal) Microbiology Microbiology Date/Time Source Procedure Growth Status 03/15/25 09:55 Blood Blood Culture - Preliminary NO GROWTH AFTER 24 HOURS OF INCUBATION. Resulted Labs and/or images reviewed: Labs reviewed by me, Image(s) reviewed by me Assessment/Plan Assessment/Plan Impression: -acute decompensated diastolic heart failure, HefPef -diabetes mellitus -hypoglycemia -obesity -primary hypertension -leukopenia -anemia Plan: -continue IV diuresis -echocardiogram: Results reviewed -stop oral antidiabetic medications given hypoglycemia -regular insulin sliding scale -right stain -check LDH, reticulocyte count, Delphine test, haptoglobin -check vitamin-D, B1, thiamine level -repeat H&H this evening Total time spent with patient discussing and formulating plan of care: 35 minutes. This medical document was created using an electronic medical record system with [employer] dictation system. Although this document has been carefully reviewed, there may still be some phonetic and typographical errors. These areas are purely typographical due to imperfections of the software programs, and do not reflect any compromise in the patient's medical care. Plan discussed with: Patient, Other (RN) My Orders Orders - BANG STEVE NP Procedure Category Date Status Time Hemoglobin & LAB 03/16/25 Transmitted Hematocrit 14:15 Erythrocyte LAB 03/16/25 Transmitted Sedimentation Rate 14:15 C-Reactive Protein LAB 03/16/25 Transmitted 14:15 Baer Stain Slide LAB 03/16/25 Transmitted 14:15 Vitamin B1 (Thiamine) LAB 03/16/25 Transmitted 14:15 Vitamin B12 LAB 03/16/25 Transmitted 14:15 Vitamin D 25-Hydroxy LAB 03/16/25 Transmitted D2 + D3 14:15 Kidney US 03/16/25 Transmitted 14:15 Lactate Dehydrogenase LAB 03/16/25 Transmitted 14:15 Chest Portable XY 03/17/25 Transmitted 04:00 Pt Request For Service PT 03/16/25 Transmitted 14:15 Date of Service: March 16, 2025 Billing Provider: BANG STEVE NP Common Visit Codes: [id number] INP/OBS CARE(HIGH) BANG STEVE NP March 16, 2025 14:27
--- NOTE | 2025-03-16 15:08 | DVH ---
US KIDNEY HISTORY: CKD COMPARISON: None TECHNIQUE: Transverse and longitudinal grayscale and color doppler images were obtained of the kidney s and bladder. FINDINGS: Right kidney: Size: 8.5 cm Cortical thickness: Normal Echogenicity: Normal Stones: None Masses: None Hydronephrosis: None Ureters: Not well visualized. Other: None Left kidney: Size: 9.5 cm Cortical thickness: Normal Echogenicity: Normal Stones: None Masses: None Hydronephrosis: None Ureters: Not well visualized. Other: None Bladder: Bauer in the bladder. Other: None. IMPRESSION: Unremarkable renal ultrasound.
[2025-03-16 15:16] LABS: Hematocrit 21.7 % (36.0-46.0); Hemoglobin 7.2 g/dL (12.2-16.2)
[2025-03-16 15:18] LABS: Wright Stain Ready for Review
[2025-03-16 15:49] LABS: Erythrocyte Sedimentation Rate 71 mm/hr (0-20)
[2025-03-17] VITALS (16 sets, daily range): BP systolic 117–174; BP diastolic 42–60; PULSE 52–83; RESP 16–20; TEMP 98–98.4; O2SAT 90–100
--- NOTE | 2025-03-17 07:19 | DVH ---
EXAM: XR Chest, 1 View CLINICAL INDICATION: chf TECHNIQUE: Frontal view of the chest. COMPARISON: XY CHEST PORTABLE on DOS: 03/15/25 FINDINGS: LUNGS AND PLEURAL SPACES: See below. HEART: Cardiomegaly with pulmonary congestion and edema. Superimposed pneumonia cannot be excluded. MEDIASTINUM: Unremarkable. Normal mediastinal contour. BONES/JOINTS: Unremarkable. No acute fracture. OTHER FINDINGS: . . . IMPRESSION: Cardiomegaly with pulmonary congestion and edema. Superimposed pneumonia cannot be excluded.
[2025-03-17 10:46] LABS: Basophils # (auto) 0 10 ^3/uL (0-0.2); Eosinophils # (auto) 0 10 ^3/uL (0-0.8); Hemoglobin 7.7 g/dL (12.2-16.2); Lymphocytes # (auto) 0.5 10 ^3/uL (0.4-5.4); Monocytes # (auto) 0.1 10 ^3/uL (0-1.3); Neutrophils # (auto) 0.4 10 ^3/uL (1.6-8.6); Platelet Count (auto) 217 10^3/uL (140-450); Red Blood Cells 2.24 10^6/uL (4.0-5.20)
[2025-03-17 10:49] LABS: Anion Gap 8 (5-15); Basophils % (auto) 0.8 % (0.0-2.0); Chloride 98 mmol/L (98-107); Eosinophils % (auto) 3.6 % (0.0-7.0); Hematocrit 23.2 % (36.0-46.0); Mean Corpuscular Hemoglobin 34.3 pg (28.0-32.0); Mean Corpuscular Hgb Conc. 33.1 g/dL (32.0-36.0); Mean Corpuscular Volume 103.4 fL (80.0-100.0); Monocytes % (auto) 7.9 % (0.0-12.0); Neutrophils % (auto) 42.7 % (37.0-80.0); Nucleated Red Blood Cells % 1.7 %; Potassium 4.6 mmol/L (3.5-5.1); Sodium 138 mmol/L (136-145)
[2025-03-17 10:50] LABS: Calcium 9.8 mg/dL (8.7-10.4)
[2025-03-17 10:55] LABS: BUN/Creatinine Ratio 14.8 (10.0-20.0); Glucose 90 mg/dL (74-106)
[2025-03-17 10:58] LABS: Blood Urea Nitrogen 29 mg/dL (9-23); Carbon Dioxide 32 mmol/L (20-31)
[2025-03-17] MEDS: D5W/SOD CHLO 0.9% 1,000 ML IV SCH (11:00)
[2025-03-17 11:10] LABS: Red Cell Distribution Width 27.6 % (11.8-14.3)
--- NOTE | 2025-03-17 12:15 | DVHPN2 ---
Subjective The patient reporting having dizziness. Changes from previous H/P or p: No Changes General: Per HPI Eyes: No Pain, No Vision change, No Conjunctivae inflammation, No Eyelid inflammation, No Other, No Redness ENT: No Ear pain, No Ear discharge, No Nose pain, No Nose discharge, No Nose congestion, No Mouth pain, No Mouth swelling, No Throat pain, No Throat swelling, No Other Cardiovascular: No Chest Pain, No Palpitations, No Orthopnea, No Paroxysmal Noc. Dyspnea, No Edema, No Lt Headedness, No Other Respiratory: No Cough, No Dry; Shortness of breath, SOB with excertion; No Wheezing, No Hemoptysis, No Pleuritic Pain, No Sputum, No Other Gastrointestinal: No Nausea, No Vomiting, No Abdominal Pain, No Diarrhea, No Constipation, No Melena, No Hematochezia, No Other Genitourinary: No Dysuria, No Frequency, No Incontinence, No Hematuria, No Retention, No Other Musculoskeletal: No other, No neck pain, No shoulder pain, No arm pain, No back pain, No hand pain, No leg pain, No foot pain Skin: No Rash, No Lesions, No Jaundice, No Bruising, No Other Objective Vitals Vital Signs Date Time Temp Pulse Resp B/P (MAP) Pulse Ox O2 Delivery O2 Flow Rate FiO2 03/17/25 12:05 64 16 100 03/17/25 11:59 Nasal Cannula 4.0 03/17/25 11:59 36 03/17/25 09:00 98.0 174/60 (98) 98.0 Intake/Output Intake and Output 03/17/25 07:00 Intake Total 1700 ml Output Total 2550 ml Balance -850 ml Intake Oral 750 ml IV Total 350 ml Blood Product 600 ml Other 0 ml Output Urine Total 2550 ml General Appearance: Alert, Oriented X3, Cooperative, mild distress HEENT: Atraumatic, PERRLA Lungs: Clear to auscultation, Normal air movement Cardiovascular: Normal S1, Normal S2 Abdomen: Normal bowel sounds Back: Flank Tenderness, Midline Tenderness Extremities: Normal pulses Neuro: Normal gait, Normal speech Skin: Dry, Intact Psych/Mental Status: Mental status NL, Mood NL Medications Current Medications Medications Dose Ordered Sig/Johanne Route Start Time Stop Time Status Last Admin Dose Admin Enoxaparin Sodium 30 mg DAILY SC 03/15/25 14:04 03/17/25 08:39 30 MG Nitroglycerin 0.4 mg Q5MINP PRN SL 03/15/25 14:00 Morphine Sulfate 2 mg Q30M PRN IV 03/15/25 14:00 Diagnostic Test (Pha) 1 strip ACHS 03/15/25 17:00 03/17/25 06:20 1 STRIP Insulin Human Regular ACHS SC 03/15/25 17:00 03/16/25 22:11 2 UNITS Dextrose 50 ml UD PRN IV 03/15/25 14:00 Ceftriaxone Sodium 50 ml @ 100 mls/hr DAILY@09 IV 03/16/25 09:00 03/17/25 08:40 100 MLS/HR Azithromycin 250 ml @ 125 mls/hr DAILY IV 03/16/25 10:00 03/17/25 08:40 125 MLS/HR Albuterol 2.5 mg Q4HPRN PRN NEB 03/15/25 14:00 Albuterol 2.5 mg Q6HR NEB 03/15/25 18:00 03/17/25 11:59 2.5 MG Ipratropium [place] 0.5 mg Q4HPRN PRN NEB 03/15/25 14:00 Ipratropium [place] 0.5 mg Q6HR NEB 03/15/25 18:00 03/17/25 11:59 0.5 MG Hydralazine HCl 10 mg Q6HP PRN IV 03/15/25 16:15 Furosemide 20 mg DAILY IV 03/16/25 10:00 03/17/25 08:40 20 MG Atorvastatin Calcium 10 mg HS PO 03/15/25 22:00 03/16/25 22:07 10 MG Levothyroxine Sodium 100 mcg DAILY PO 03/16/25 10:00 03/17/25 08:40 100 MCG Levothyroxine Sodium 25 mcg DAILY PO 03/16/25 10:00 03/17/25 08:40 25 MCG Multivit/Ca Carb/ B Cmplx/FA/Prenat 1 tab DAILY PO 03/17/25 10:00 Dextrose/Sodium Chloride 1,000 ml @ 75 mls/hr [id number] IV 03/17/25 11:00 Amlodipine Besylate 10 mg DAILY PO 03/18/25 10:00 Laboratory Results Laboratory Tests 03/17/25 10:05 Chemistry Test 03/17/25 10:05 Calcium Level 9.8 mg/dL (8.7-10.4) Urinalysis Test 03/15/25 10:43 Urine Color Light-yellow (Yellow) Urine Clarity Clear (Clear) Urine pH 5.5 (5.0-9.0) Urine Specific [place] 1.012 (1.001-1.035) Urine Protein Negative (Negative) Urine Ketones Negative (Negative) Urine Blood Negative /uL (Negative) Urine Nitrite Negative (Negative) Urine Bilirubin Negative (Negative) Urine Urobilinogen Normal mg/dL (Negative) Urine Leukocyte Esterase Negative /uL (Negative) Urine RBC None seen /hpf (0 - 4) Urine Microscopic WBC < 1 /HPF (0-5) Urine Squamous Epithelial Cells None seen /hpf (<5) Urine Bacteria None seen /hpf (None Seen) Urine Glucose Trace mg/dL (Normal) Microbiology Microbiology Date/Time Source Procedure Growth Status 03/15/25 09:55 Blood Blood Culture - Preliminary NO GROWTH AFTER 48 HOURS OF INCUBATION. Resulted Labs and/or images reviewed: Labs reviewed by me, Image(s) reviewed by me Assessment/Plan Assessment/Plan Impression: -acute decompensated diastolic heart failure, HefPef -diabetes mellitus -hypoglycemia -obesity -primary hypertension -leukopenia -anemia -acute hypoxic respiratory failure Plan: Events: Patient with hypoglycemia overnight despite stopping all oral anti diabetic medications. Start D5 NS at 75 mL an hour. -continue IV diuresis -echocardiogram: Results reviewed -Continue antibiotic therapy with Rocephin and azithromycin -persistent lymphopenia. Patient will receive Granulex -stop oral antidiabetic medications given hypoglycemia -regular insulin sliding scale -peripheral smear pending -check LDH, reticulocyte count, Delphine test, haptoglobin: Pending -check vitamin-D, B1, thiamine level -repeat labs and chest x-ray in a.m. -CT scan of the chest. Total time spent with patient discussing and formulating plan of care: 35 minutes. This medical document was created using an electronic medical record system with [email or web address] dictation system. Although this document has been carefully reviewed, there may still be some phonetic and typographical errors. These areas are purely typographical due to imperfections of the software programs, and do not reflect any compromise in the patient's medical care. Plan discussed with: Patient, Other (RN) My Orders Orders - BANG STEVE CONFORMAL PAD FORMER Procedure Category Date Status Time Vitamin B1 (Thiamine) LAB 03/16/25 In Process 14:15 Vitamin D 25-Hydroxy LAB 03/16/25 In Process D2 + D3 14:15 Kidney US 03/16/25 Resulted 14:15 Chest Portable XY 03/17/25 Resulted 04:00 Pt Request For Service PT 03/16/25 Logged 14:15 Haptoglobin LAB 03/16/25 In Process 14:23 Code Status CODE 03/16/25 Transmitted 16:50 B-Complex W/ C & PHA 03/17/25 In Process Folic Tablet 10:00 Complete Blood Count LAB 03/17/25 In Process 08:[address] 03/17/25 Taken 10:37 D5w/Sod Chlo 0.9% PHA 03/17/25 In Process (D5w Ns 0.9%) 11:00 Amlodipine Tablet PHA 03/18/25 In Process (Norvasc Tablet) 10:00 Rbc Morphology LAB 03/17/25 In Process 10:05 Filgrastim-Tbo PHA 03/17/25 Transmitted (Granix) 12:15 Complete Blood Count LAB 03/18/25 Verified 04:00 Comprehensive LAB 03/18/25 Verified Metabolic Panel 04:00 Date of Service: March 17, 2025 Billing Provider: BANG STEVE CONFORMAL PAD FORMER Common Visit Codes: [id number] INP/OBS CARE(HIGH) BANG STEVE CONFORMAL PAD FORMER March 17, 2025 12:15
[2025-03-17 12:28] LABS: Platelet Estimate Adequate
[2025-03-17 12:29] LABS: Anisocytosis Moderate; Macrocytosis Slight
[2025-03-17] MEDS: amLODIPine BESYLATE 5 MG TAB PO ONE (12:30)
--- NOTE | 2025-03-17 12:49 | DVH ---
Procedure: CT CHEST WITHOUT CONTRAST Reason for study/Clinical History: Hypoxia, pna Comparison Study: None TECHNIQUE: Multidetector CT of the chest was performed from the lung apices to the upper abdomen with out the use of intravenous contract. Axial, coronal and sagittal multiplanar reformats were performed . Radiation Dose Information: CT Dose: CTDI volume is 26.31 mGy. Dose-length product is 937.65 mGy*cm The dose indicators for CT are the volume Computed Tomography (CT) Dose Index (CTDIvol) and the Dose Length Product (DLP), and are measured in units of mGy and mGy-cm, respectively. These indicators are not patient dose, but values generated from the CT scanner acquisition factors. The report includes radiation exposure data for exposures received during this examination. FINDINGS: Lower neck: Unremarkable. Lungs: Diffuse ground-glass airspace opacities throughout the lungs with more focal consolidation dev eloping in the bilateral upper lobes. Heart/Vascular Structures: Cardiomegaly. Coronary artery calcifications. Vascular calcifications of t he aorta. Lymph Nodes: No adenopathy Pleura: No pleural effusion or significant pneumothorax. Musculoskeletal: No acute osseous abnormality. Degenerative changes of the spine. Soft tissues: Normal. Upper abdomen: Post cholecystectomy. IMPRESSION: Multifocal ground-glass airspace disease with more focal consolidation developing in the bilateral de pendent upper lobes. Differential considerations could include atypical infection or inflammatory pr ocess or fluid overload.
[2025-03-17] MEDS: B-COMPLEX W/ C & FOLIC ACID(NEPHROVITE TAB) PO SCH (16:41)
[2025-03-17] MEDS: FILGRASTIM (TBO) 300 MCG/0.5 ML SYRG SC ONE (17:54)
[2025-03-18] VITALS (18 sets, daily range): BP systolic 129–159; BP diastolic 35–47; PULSE 60–70; RESP 15–21; TEMP 97.3–98.2; O2SAT 90–100
[2025-03-18 06:39] LABS: Basophils # (auto) 0 10 ^3/uL (0-0.2); Eosinophils # (auto) 0 10 ^3/uL (0-0.8); Lymphocytes # (auto) 0.5 10 ^3/uL (0.4-5.4); Monocytes # (auto) 0.1 10 ^3/uL (0-1.3); Nucleated Red Blood Cells % 2.4 %
[2025-03-18 06:42] LABS: Basophils % (auto) 0.6 % (0.0-2.0); Eosinophils % (auto) 2.4 % (0.0-7.0); Hematocrit 25.4 % (36.0-46.0); Hemoglobin 8.3 g/dL (12.2-16.2); Lymphocytes % (auto) 32.8 % (10.0-50.0); Mean Corpuscular Hemoglobin 34.1 pg (28.0-32.0); Mean Corpuscular Hgb Conc. 32.9 g/dL (32.0-36.0); Mean Corpuscular Volume 103.6 fL (80.0-100.0); Neutrophils # (auto) 0.9 10 ^3/uL (1.6-8.6); Neutrophils % (auto) 60.2 % (37.0-80.0); Platelet Count (auto) 229 10^3/uL (140-450); Red Blood Cells 2.45 10^6/uL (4.0-5.20)
[2025-03-18 06:57] LABS: Alanine Aminotransferase 11 U/L (7-40); Alkaline Phosphatase 61 U/L (46-116); Anion Gap 8 (5-15); BUN/Creatinine Ratio 15.9 (10.0-20.0); Calcium 10.1 mg/dL (8.7-10.4); Chloride 101 mmol/L (98-107); Potassium 4.5 mmol/L (3.5-5.1); Sodium 140 mmol/L (136-145); Total Protein 6.9 g/dL (5.7-8.2)
[2025-03-18 06:58] LABS: Bilirubin, Total 0.7 mg/dL (0.2-1.0)
[2025-03-18 07:07] LABS: Aspartate Aminotransferase < 8 U/L (13-40); Blood Urea Nitrogen 31 mg/dL (9-23); Carbon Dioxide 31 mmol/L (20-31); Glucose 156 mg/dL (74-106)
[2025-03-18 07:20] LABS: Red Cell Distribution Width 26.8 % (11.8-14.3)
[2025-03-18 07:21] LABS: White Blood Cell 1.5 10^3/uL (4.4-10.8)
[2025-03-18] MEDS: amLODIPine BESYLATE 5 MG TAB PO SCH (10:34)
--- NOTE | 2025-03-18 11:04 | DVHPN2 ---
Subjective The patient reporting having dizziness. Reviewed: Care Plan, H&P, Labs Changes from previous H/P or p: No Changes General: Per HPI Eyes: No Pain, No Vision change, No Conjunctivae inflammation, No Eyelid inflammation, No Other, No Redness ENT: No Ear pain, No Ear discharge, No Nose pain, No Nose discharge, No Nose congestion, No Mouth pain, No Mouth swelling, No Throat pain, No Throat swelling, No Other Cardiovascular: No Chest Pain, No Palpitations, No Orthopnea, No Paroxysmal Noc. Dyspnea, No Edema, No Lt Headedness, No Other Respiratory: No Cough, No Dry; Shortness of breath, SOB with excertion; No Wheezing, No Hemoptysis, No Pleuritic Pain, No Sputum, No Other Gastrointestinal: No Nausea, No Vomiting, No Abdominal Pain, No Diarrhea, No Constipation, No Melena, No Hematochezia, No Other Genitourinary: No Dysuria, No Frequency, No Incontinence, No Hematuria, No Retention, No Other Musculoskeletal: No other, No neck pain, No shoulder pain, No arm pain, No back pain, No hand pain, No leg pain, No foot pain Skin: No Rash, No Lesions, No Jaundice, No Bruising, No Other Objective Vitals Vital Signs Date Time Temp Pulse Resp B/P (MAP) Pulse Ox O2 Delivery O2 Flow Rate FiO2 03/18/25 10:34 137/36 03/18/25 09:00 98.2 68 16 95 98.2 03/18/25 06:26 Nasal Cannula* 4 36 Intake/Output Intake and Output 03/18/25 07:00 Intake Total 1325 ml Output Total 1500 ml Balance -175 ml Intake Oral 1325 ml Output Urine Total 1500 ml General Appearance: Alert, Oriented X3, Cooperative, mild distress HEENT: Atraumatic, PERRLA Lungs: Clear to auscultation, Normal air movement Cardiovascular: Normal S1, Normal S2 Abdomen: Normal bowel sounds Back: Flank Tenderness, Midline Tenderness Extremities: Normal pulses Neuro: Normal gait, Normal speech Skin: Dry, Intact Psych/Mental Status: Mental status NL, Mood NL Medications Current Medications Medications Dose Ordered Sig/Johanne Route Start Time Stop Time Status Last Admin Dose Admin Enoxaparin Sodium 30 mg DAILY SC 03/15/25 14:04 03/18/25 10:34 30 MG Nitroglycerin 0.4 mg Q5MINP PRN SL 03/15/25 14:00 Morphine Sulfate 2 mg Q30M PRN IV 03/15/25 14:00 Diagnostic Test (Pha) 1 strip ACHS 03/15/25 17:00 03/18/25 06:54 1 STRIP Insulin Human Regular ACHS SC 03/15/25 17:00 03/18/25 06:59 2 UNITS Dextrose 50 ml UD PRN IV 03/15/25 14:00 Ceftriaxone Sodium 50 ml @ 100 mls/hr DAILY@09 IV 03/16/25 09:00 03/18/25 08:39 100 MLS/HR Azithromycin 250 ml @ 125 mls/hr DAILY IV 03/16/25 10:00 03/18/25 10:33 125 MLS/HR Albuterol 2.5 mg Q4HPRN PRN NEB 03/15/25 14:00 Albuterol 2.5 mg Q6HR NEB 03/15/25 18:00 03/18/25 07:26 2.5 MG Ipratropium [place] 0.5 mg Q4HPRN PRN NEB 03/15/25 14:00 Ipratropium [place] 0.5 mg Q6HR NEB 03/15/25 18:00 03/18/25 07:26 0.5 MG Hydralazine HCl 10 mg Q6HP PRN IV 03/15/25 16:15 Furosemide 20 mg DAILY IV 03/16/25 10:00 03/18/25 10:33 20 MG Atorvastatin Calcium 10 mg HS PO 03/15/25 22:00 03/17/25 22:32 10 MG Levothyroxine Sodium 100 mcg DAILY PO 03/16/25 10:00 03/18/25 10:34 100 MCG Levothyroxine Sodium 25 mcg DAILY PO 03/16/25 10:00 03/18/25 10:34 25 MCG Multivit/Ca Carb/ B Cmplx/FA/Prenat 1 tab DAILY PO 03/17/25 10:00 03/18/25 10:33 1 TAB Amlodipine Besylate 10 mg DAILY PO 03/18/25 10:00 03/18/25 10:34 10 MG Laboratory Results Laboratory Tests 03/18/25 04:36 Chemistry Test 03/18/25 04:36 Albumin 4.0 g/dL (3.2-4.8) Calcium Level 10.1 mg/dL (8.7-10.4) Total Protein 6.9 g/dL (5.7-8.2) LFT Test 03/18/25 04:36 Alanine Aminotransferase (ALT) 11 U/L (7-40) Alkaline Phosphatase 61 U/L (46-116) Aspartate Amino Transferase (AST) < 8 U/L (13-40) L Total Bilirubin 0.7 mg/dL (0.2-1.0) Urinalysis Test 03/15/25 10:43 Urine Color Light-yellow (Yellow) Urine Clarity Clear (Clear) Urine pH 5.5 (5.0-9.0) Urine Specific [place] 1.012 (1.001-1.035) Urine Protein Negative (Negative) Urine Ketones Negative (Negative) Urine Blood Negative /uL (Negative) Urine Nitrite Negative (Negative) Urine Bilirubin Negative (Negative) Urine Urobilinogen Normal mg/dL (Negative) Urine Leukocyte Esterase Negative /uL (Negative) Urine RBC None seen /hpf (0 - 4) Urine Microscopic WBC < 1 /HPF (0-5) Urine Squamous Epithelial Cells None seen /hpf (<5) Urine Bacteria None seen /hpf (None Seen) Urine Glucose Trace mg/dL (Normal) Microbiology Microbiology Date/Time Source Procedure Growth Status 03/15/25 09:55 Blood Blood Culture - Preliminary NO GROWTH AFTER 72 HOURS OF INCUBATION. Resulted Labs and/or images reviewed: Labs reviewed by me, Image(s) reviewed by me Assessment/Plan Assessment/Plan Impression: -acute decompensated diastolic heart failure, HefPef -diabetes mellitus -hypoglycemia -obesity -primary hypertension -leukopenia -anemia -acute hypoxic respiratory failure Plan: Events: CT scan of the chest with noted multifocal pneumonia. Continue with current plan of care including empiric antibiotics and diuretics. Patient states she is on hospice at home with 4 L of oxygen supplementation. Reports that she does not want to be placed back on hospice. Social service consultation placed. Check influenza and COVID 19. WBC count increasing after Granulex. -continue IV diuresis -echocardiogram: Results reviewed -Continue antibiotic therapy with Rocephin and azithromycin -persistent lymphopenia. Patient will receive Granulex -regular insulin sliding scale -peripheral smear pending -check vitamin-D, B1, thiamine level -repeat labs and chest x-ray in a.m. Total time spent with patient discussing and formulating plan of care: 35 minutes. This medical document was created using an electronic medical record system with [employer] dictation system. Although this document has been carefully reviewed, there may still be some phonetic and typographical errors. These areas are purely typographical due to imperfections of the software programs, and do not reflect any compromise in the patient's medical care. Plan discussed with: Patient, Other (RN) My Orders Orders - BANG STEVE NP Procedure Category Date Status Time Rapid Influenza A&B LAB 03/18/25 Logged 10:41 Covid19 Antigen Riri LAB 03/18/25 Logged Complete Blood Count LAB 03/19/25 Verified 04:00 Comprehensive LAB 03/19/25 Verified Metabolic Panel 04:00 Furosemide Injection PHA 03/18/25 Logged (Lasix Injection) 10:45 * Manager Lvn CONS 03/18/25 Verified Consult Date of Service: March 18, 2025 Billing Provider: BANG STEVE NP Common Visit Codes: [id number] INP/OBS CARE(HIGH) BANG STEVE NP March 18, 2025 11:04
[2025-03-18 16:23] LABS: COVID19 ANTIGEN SOFIA FIA NEGATIVE (NEGATIVE); Rapid Influenza A Negative (Negative); Rapid Influenza B Negative (Negative)
[2025-03-18] MEDS: FUROSEMIDE 20 MG/2 ML VIAL IV ONE (17:01)
[2025-03-19] VITALS (17 sets, daily range): BP systolic 113–145; BP diastolic 41–64; PULSE 54–72; RESP 15–19; TEMP 97.3–98.3; O2SAT 90–100
[2025-03-19 06:45] LABS: Basophils # (auto) 0 10 ^3/uL (0-0.2); Hematocrit 24.8 % (36.0-46.0); Lymphocytes # (auto) 0.7 10 ^3/uL (0.4-5.4); Monocytes # (auto) 0.2 10 ^3/uL (0-1.3); Neutrophils # (auto) 0.7 10 ^3/uL (1.6-8.6)
[2025-03-19 06:50] LABS: Basophils % (auto) 0.5 % (0.0-2.0); Eosinophils # (auto) 0.1 10 ^3/uL (0-0.8); Eosinophils % (auto) 3.1 % (0.0-7.0); Hemoglobin 8.2 g/dL (12.2-16.2); Lymphocytes % (auto) 42.8 % (10.0-50.0); Mean Corpuscular Hemoglobin 34.2 pg (28.0-32.0); Mean Corpuscular Hgb Conc. 32.9 g/dL (32.0-36.0); Mean Corpuscular Volume 104.1 fL (80.0-100.0); Monocytes % (auto) 10.1 % (0.0-12.0); Neutrophils % (auto) 43.5 % (37.0-80.0); Nucleated Red Blood Cells % 0.3 %; Platelet Count (auto) 185 10^3/uL (140-450); Red Blood Cells 2.39 10^6/uL (4.0-5.20)
[2025-03-19 06:54] LABS: Red Cell Distribution Width 27.6 % (11.8-14.3)
[2025-03-19 06:59] LABS: White Blood Cell 1.7 10^3/uL (4.4-10.8)
[2025-03-19 07:06] LABS: Alanine Aminotransferase 10 U/L (7-40); Alkaline Phosphatase 55 U/L (46-116); Anion Gap 6 (5-15); BUN/Creatinine Ratio 17.9 (10.0-20.0); Calcium 10.1 mg/dL (8.7-10.4); Chloride 102 mmol/L (98-107); Potassium 4.5 mmol/L (3.5-5.1); Sodium 141 mmol/L (136-145); Total Protein 6.6 g/dL (5.7-8.2)
[2025-03-19 07:08] LABS: Bilirubin, Total 0.5 mg/dL (0.2-1.0)
[2025-03-19 07:10] LABS: Aspartate Aminotransferase < 8 U/L (13-40); Blood Urea Nitrogen 33 mg/dL (9-23); Carbon Dioxide 33 mmol/L (20-31); Glucose 137 mg/dL (74-106)
[2025-03-19 07:22] LABS: Albumin 3.8 g/dL (3.2-4.8)
--- NOTE | 2025-03-19 13:08 | DVHPN2 ---
Subjective The patient reporting having dizziness. Reviewed: Care Plan, H&P, Labs Changes from previous H/P or p: No Changes General: Per HPI Eyes: No Pain, No Vision change, No Conjunctivae inflammation, No Eyelid inflammation, No Other, No Redness ENT: No Ear pain, No Ear discharge, No Nose pain, No Nose discharge, No Nose congestion, No Mouth pain, No Mouth swelling, No Throat pain, No Throat swelling, No Other Cardiovascular: No Chest Pain, No Palpitations, No Orthopnea, No Paroxysmal Noc. Dyspnea, No Edema, No Lt Headedness, No Other Respiratory: No Cough, No Dry; Shortness of breath, SOB with excertion; No Wheezing, No Hemoptysis, No Pleuritic Pain, No Sputum, No Other Gastrointestinal: No Nausea, No Vomiting, No Abdominal Pain, No Diarrhea, No Constipation, No Melena, No Hematochezia, No Other Genitourinary: No Dysuria, No Frequency, No Incontinence, No Hematuria, No Retention, No Other Musculoskeletal: No other, No neck pain, No shoulder pain, No arm pain, No back pain, No hand pain, No leg pain, No foot pain Skin: No Rash, No Lesions, No Jaundice, No Bruising, No Other Objective Vitals Vital Signs Date Time Temp Pulse Resp B/P (MAP) Pulse Ox O2 Delivery O2 Flow Rate FiO2 03/19/25 11:57 67 18 100 03/19/25 11:51 Nasal Cannula* 4 36 03/19/25 09:56 130/51 03/19/25 09:00 98.3 98.3 Intake/Output Intake and Output 03/19/25 07:00 Intake Total 968 ml Output Total 950 ml Balance 18 ml Intake Oral 668 ml IV Total 300 ml Output Urine Total 950 ml General Appearance: Alert, Oriented X3, Cooperative, mild distress HEENT: Atraumatic, PERRLA Lungs: Clear to auscultation, Normal air movement Cardiovascular: Normal S1, Normal S2 Abdomen: Normal bowel sounds Back: Flank Tenderness, Midline Tenderness Extremities: Normal pulses Neuro: Normal gait, Normal speech Skin: Dry, Intact Psych/Mental Status: Mental status NL, Mood NL Medications Current Medications Medications Dose Ordered Sig/Johanne Route Start Time Stop Time Status Last Admin Dose Admin Enoxaparin Sodium 30 mg DAILY SC 03/15/25 14:04 03/19/25 09:56 30 MG Nitroglycerin 0.4 mg Q5MINP PRN SL 03/15/25 14:00 Morphine Sulfate 2 mg Q30M PRN IV 03/15/25 14:00 Diagnostic Test (Pha) 1 strip ACHS 03/15/25 17:00 03/19/25 12:11 1 STRIP Insulin Human Regular ACHS SC 03/15/25 17:00 03/19/25 12:13 4 UNITS Dextrose 50 ml UD PRN IV 03/15/25 14:00 Ceftriaxone Sodium 50 ml @ 100 mls/hr DAILY@09 IV 03/16/25 09:00 03/19/25 08:37 100 MLS/HR Azithromycin 250 ml @ 125 mls/hr DAILY IV 03/16/25 10:00 03/19/25 09:55 125 MLS/HR Albuterol 2.5 mg Q4HPRN PRN NEB 03/15/25 14:00 Albuterol 2.5 mg Q6HR NEB 03/15/25 18:00 03/19/25 11:51 2.5 MG Ipratropium [place] 0.5 mg Q4HPRN PRN NEB 03/15/25 14:00 Ipratropium [place] 0.5 mg Q6HR NEB 03/15/25 18:00 03/19/25 11:51 0.5 MG Hydralazine HCl 10 mg Q6HP PRN IV 03/15/25 16:15 Furosemide 20 mg DAILY IV 03/16/25 10:00 03/19/25 09:55 20 MG Atorvastatin Calcium 10 mg HS PO 03/15/25 22:00 03/18/25 21:29 10 MG Levothyroxine Sodium 100 mcg DAILY PO 03/16/25 10:00 03/19/25 09:56 100 MCG Levothyroxine Sodium 25 mcg DAILY PO 03/16/25 10:00 03/19/25 09:56 25 MCG Multivit/Ca Carb/ B Cmplx/FA/Prenat 1 tab DAILY PO 03/17/25 10:00 03/19/25 09:56 1 TAB Amlodipine Besylate 10 mg DAILY PO 03/18/25 10:00 03/19/25 09:56 10 MG Laboratory Results Laboratory Tests 03/19/25 04:55 Chemistry Test 03/19/25 04:55 Albumin 3.8 g/dL (3.2-4.8) Calcium Level 10.1 mg/dL (8.7-10.4) Total Protein 6.6 g/dL (5.7-8.2) LFT Test 03/19/25 04:55 Alanine Aminotransferase (ALT) 10 U/L (7-40) Alkaline Phosphatase 55 U/L (46-116) Aspartate Amino Transferase (AST) < 8 U/L (13-40) L Total Bilirubin 0.5 mg/dL (0.2-1.0) Urinalysis Test 03/15/25 10:43 Urine Color Light-yellow (Yellow) Urine Clarity Clear (Clear) Urine pH 5.5 (5.0-9.0) Urine Specific Radiant 1.012 (1.001-1.035) Urine Protein Negative (Negative) Urine Ketones Negative (Negative) Urine Blood Negative /uL (Negative) Urine Nitrite Negative (Negative) Urine Bilirubin Negative (Negative) Urine Urobilinogen Normal mg/dL (Negative) Urine Leukocyte Esterase Negative /uL (Negative) Urine RBC None seen /hpf (0 - 4) Urine Microscopic WBC < 1 /HPF (0-5) Urine Squamous Epithelial Cells None seen /hpf (<5) Urine Bacteria None seen /hpf (None Seen) Urine Glucose Trace mg/dL (Normal) Microbiology Microbiology Date/Time Source Procedure Growth Status 03/15/25 09:55 Blood Blood Culture - Preliminary NO GROWTH AFTER 72 HOURS OF INCUBATION. Resulted Labs and/or images reviewed: Image(s) reviewed by me Assessment/Plan Assessment/Plan Impression: -acute decompensated diastolic heart failure, HefPef -diabetes mellitus -hypoglycemia -obesity -primary hypertension -leukopenia -anemia -acute hypoxic respiratory failure Plan: Events: Long discussion made with the patient's daughter, Natalia as well as patient today. Yesterday they were agreeable to plan of care including fpc facility, for which family service caseworker stated that the patient wanted hospice. This was revisit with both with the daughter and patient today. At this time, patient wants to go to a fpc facility then transitioned to hospice before going home. Patient able to ambulate 10 ft with walker and assistance. Patient will require physical therapy for at least two weeks as well as continued IV antibiotics for pneumonia in a facility. -continue IV diuresis -echocardiogram: Results reviewed -Continue antibiotic therapy with Rocephin and azithromycin -persistent lymphopenia. Patient will receive Granulex -regular insulin sliding scale -peripheral smear pending -check vitamin-D, B1, thiamine level -repeat labs and chest x-ray in a.m. Total time spent with patient discussing and formulating plan of care: 35 minutes. This medical document was created using an electronic medical record system with [employer] dictation system. Although this document has been carefully reviewed, there may still be some phonetic and typographical errors. These areas are purely typographical due to imperfections of the software programs, and do not reflect any compromise in the patient's medical care. Plan discussed with: Patient, Other (RN) My Orders Orders - BANG STEVE NP Procedure Category Date Status Time * Adoption Coordinator CONS 03/18/25 Transmitted Consult * Adoption Coordinator CONS 03/19/25 Transmitted Consult Date of Service: March 19, 2025 Billing Provider: BANG STEVE NP Common Visit Codes: [id number] INP/OBS CARE(HIGH) BANG STEVE NP March 19, 2025 13:08
[2025-03-20] VITALS (9 sets, daily range): BP systolic 126–150; BP diastolic 43–82; PULSE 56–77; RESP 16–20; TEMP 97.3–98.1; O2SAT 90–100
--- NOTE | 2025-03-20 10:55 | DVHDS2 ---
Discharge Summary Date of Admission March 15, 2025 at 13:47 Date of Discharge: March 20, 2025 Admitting Diagnosis Acute hypoxic respiratory failure Labs/Diagnostic Data: Laboratory Results Test 03/20/25 06:20 03/19/25 04:55 03/18/25 15:30 03/17/25 10:05 POC Glucose 144 mg/dl (70-106) White Blood Count 1.7 10^3/uL (4.4-10.8) Red Blood Count 2.39 10^6/uL (4.0-5.20) Hemoglobin 8.2 g/dL (12.2-16.2) Hematocrit 24.8 % (36.0-46.0) Mean Corpuscular Volume 104.1 fL (80.0-100.0) Mean Corpuscular Hemoglobin 34.2 pg (28.0-32.0) Mean Corpuscular Hemoglobin Concent 32.9 g/dL (32.0-36.0) Red Cell Distribution Width 27.6 % (11.8-14.3) Platelet Count 185 10^3/uL (140-450) Mean Platelet Volume 8.4 fL (6.9-10.8) Neutrophils (%) (Auto) 43.5 % (37.0-80.0) Lymphocytes (%) (Auto) 42.8 % (10.0-50.0) Monocytes (%) (Auto) 10.1 % (0.0-12.0) Eosinophils (%) (Auto) 3.1 % (0.0-7.0) Basophils (%) (Auto) 0.5 % (0.0-2.0) Neutrophils # (Auto) 0.7 10 ^3/uL (1.6-8.6) Lymphocytes # (Auto) 0.7 10 ^3/uL (0.4-5.4) Monocytes # (Auto) 0.2 10 ^3/uL (0-1.3) Eosinophils # (Auto) 0.1 10 ^3/uL (0-0.8) Basophils # (Auto) 0 10 ^3/uL (0-0.2) Nucleated Red Blood Cells 0.3 % Sodium Level 141 mmol/L (136-145) Potassium Level 4.5 mmol/L (3.5-5.1) Chloride Level 102 mmol/L (98-107) Carbon Dioxide Level 33 mmol/L (20-31) Anion Gap 6 (5-15) Blood Urea Nitrogen 33 mg/dL (9-23) Creatinine 1.84 mg/dL (0.550-1.02) Glomerular Filtration Rate Calc 26 mL/min (>90) BUN/Creatinine Ratio 17.9 (10.0-20.0) Serum Glucose 137 mg/dL (74-106) Calcium Level 10.1 mg/dL (8.7-10.4) Total Bilirubin 0.5 mg/dL (0.2-1.0) Aspartate Amino Transferase (AST) < 8 U/L (13-40) Alanine Aminotransferase (ALT) 10 U/L (7-40) Alkaline Phosphatase 55 U/L (46-116) Total Protein 6.6 g/dL (5.7-8.2) Albumin 3.8 g/dL (3.2-4.8) Influenza Type A Antigen Negative (Negative) Influenza Type B Antigen Negative (Negative) SARS-CoV-2 Antigen (Rapid) Negative (NEGATIVE) Platelet Estimate Adequate Anisocytosis (manual) Moderate Macrocytosis Slight Test 03/16/25 14:54 03/15/25 13:18 03/15/25 10:43 03/15/25 10:05 Erythrocyte Sedimentation Rate 71 mm/hr (0-20) Reticulocyte Count (auto) 3.21 % (0.5-1.5) Haptoglobin 198 mg/dL (41-333) Lactate Dehydrogenase 240 U/L (120-246) C-Reactive Protein High Sensitivity 4.33 mg/dL (<1.0) Vitamin B12 Level 186 pg/mL (211-911) Troponin I High Sensitivity 22 ng/L (</=34) Urine Color Light-yellow (Yellow) Urine Clarity Clear (Clear) Urine pH 5.5 (5.0-9.0) Urine Specific [place] 1.012 (1.001-1.035) Urine Protein Negative (Negative) Urine Ketones Negative (Negative) Urine Blood Negative /uL (Negative) Urine Nitrite Negative (Negative) Urine Bilirubin Negative (Negative) Urine Urobilinogen Normal mg/dL (Negative) Urine Leukocyte Esterase Negative /uL (Negative) Urine RBC None seen /hpf (0 - 4) Urine Microscopic WBC < 1 /HPF (0-5) Urine Squamous Epithelial Cells None seen /hpf (<5) Urine Bacteria None seen /hpf (None Seen) Urine Glucose Trace mg/dL (Normal) Blood Gas Specimen Type Arterial Blood Gas Sample Site Left radial Blood Gas Patient Temperature 37.0 Arterial Blood Date Drawn [id number] Arterial Blood pH 7.353 (7.350-7.450) Arterial Blood Partial Pressure CO2 51.9 mmHg (32.0-45.0) Arterial Blood Partial Pressure O2 71.6 mmHg (83.0-108.0) Arterial Blood HCO3 28.2 mmol/L (21.0-28.0) Arterial Blood Oxygen Saturation 91.2 % (94.0-98.0) Arterial Blood Base Excess 2.3 mmol/L (-2.0-3.0) Arterial Blood Oxyhemoglobin 89.1 % (94.0-98.0) Arterial Blood Carboxyhemoglobin 2.0 % (0.5-1.5) Arterial Blood Methemoglobin 0.3 % (0.0-1.5) Ernesto Test Yes Blood Gas Total Hemoglobin 7.50 g/dL (12.0-16.0) Blood Gas Liter Flow 6.00 Blood Gas Modality Oxymizer FiO2 % 52.0 Test 03/15/25 09:55 Differential Total Cells Counted 100.0 (100) Neutrophils % (Manual) 55 (37.0-80.0) Band Neutrophils % (Manual) 2 Lymphocytes % (Manual) 40 (10.0-50.0) Monocytes % (Manual) 3 (0-12) Eosinophils % (Manual) 0 (0-7) Basophils % (Manual) 0 (0.0-2.0) Metamyelocytes % (manual) 0 Myelocytes % (Manual) 0 Promyelocytes % (Manual) 0 Blast Cells % (Manual) 0 Reactive Lymphocytes 0 Hemoglobin A1c 5.5 % A1C (<5.7) Lactic Acid Level 1.3 mmol/L (0.4-2.0) B-Type Natriuretic Peptide 529.94 pg/mL (0-100) Triglycerides Level 102 mg/dL (< 150) Cholesterol Level 113 mg/dL (< 200) LDL Cholesterol 66 mg/dL (< 100) HDL Cholesterol 30 mg/dL (40-59) Thyroid Stimulating Hormone (TSH) 3.37 uIU/mL (0.55-4.78) Other Laboratory Tests 03/19/25 04:55 Brief Hx & Hospital Course: History of Present Illness An 84-year-old female presents to the ED via EMS with a chief complaint of shortness of breath. According to the daughter at the bedside, the patient developed acute dyspnea and was noted to be hypoxemic, prompting a call to EMS. The patient was recently diagnosed with pneumonia and was placed on CPAP during transport, which improve her oxygen saturation. The daughter also reports recent change in mentation. Upon reviewing medical records the patient was prescribed Eliquis but daughter does not know why the patient is taking Eliquis. Significant past medical history of hypertension, diabetes, recent pneumonia and obesity. Course of hospitalization: Patient was started on antibiotic therapy with azithromycin and Rocephin. Patient was given bronchodilators. Patient was found to have severe leukopenia as well as anemia. Patient underwent peripheral stain which is currently pending. Haptoglobin, Delphine test negative. Positive reticulocytes. Patient had one dose of Granulex with improvement with leukopenia. Patient's respiratory status has improved. According to the patient, she was on hospice prior to coming in the hospital and is on maintenance O2 supplementation 4 L/min. Patient has been seen by Physical therapy, ambulating approximately 10 ft with a walker. Long discussion was made with the patient as well as patient's daughter, Natalia regarding plan of care. They are agreeable for the patient to transitioned to a senior living facility for continued IV antibiotic therapy as well as physical therapy with questionable placement back on hospice versus home health services at the duration of 2-3 weeks. All parties are agreeable to discharge plan. All questions answered. Physical examination General: Alert and Oriented x3. No acute distress. Well-nourished. Eyes: EOMI. Anicteric. HENT: Moist mucous membranes. Lungs: Clear to auscultation bilaterally. No accessory muscle use. Cardiovascular: Regular rate and rhythm. No murmur. No JVD. Abdomen: Soft, non-tender and non-distended. No palpable masses. Extremities: No edema. Non-tender. Skin: No rashes or lesions. Warm. Neurologic: No focal neurological deficits. CN II-XII grossly intact, but not individually tested. Psychiatric: Cooperative. Appropriate mood and affect. Total time spent with patient discussing and formulating plan of care: 35 minutes. This medical document was created using an electronic medical record system with [employer] dictation system. Although this document has been carefully reviewed, there may still be some phonetic and typographical errors. These areas are purely typographical due to imperfections of the software programs, and do not reflect any compromise in the patient's medical care. Condition at Discharge: Guarded Final Diagnosis/Problems List Acute on chronic hypoxic respiratory failure Community-acquired pneumonia, probable Gram-positive/Gram-negative etiology Secondary diagnosis: -acute decompensated diastolic heart failure, HefPef -diabetes mellitus -hypoglycemia -obesity -primary hypertension -leukopenia -anemia -acute hypoxic respiratory failure Discharge Disposition: [facility] Discharge Instruct/Medications Diet: Consistent carbohydrate, Cardiac 2g Na,low cholest Activity: No Restrictions, As Tolerated Follow Up/Referral: Per accepting provider Medications: Refer to medication reconciliation form 36 Discharge Statement: "Patient was advised to return to the ER or call 911 if any headaches, dizziness, shortness of breath, chest pain, abdominal pain, bleeding, fevers, or worsening of medical condition. Patient was counseled about treatment plan, medications, possible side effects, patientverbalized understanding. All questions were answered to the best of my ability. This discharge took greater then 30 minutes in planning, reviewing documentation, counseling the patient, and discussing with other team members." ASSESSMENT ASSESSMENT Assessment Acute on chronic hypoxic respiratory failure Community-acquired pneumonia, probable Gram-positive/Gram-negative etiology Date of Service: March 20, 2025 Billing Provider: BANG STEVE NP Common Visit Codes: 86618-ASK/OBS DISCH DAY >30min BANG STEVE NP March 20, 2025 10:55
[2025-03-20 11:08] LABS: Vitamin D 25-Hydroxy 53 ng/mL (.); Vitamin D-2 25-Hydroxy <1.0 ng/mL (.); Vitamin D-3 25-Hydroxy 53 ng/mL (.)
--- NOTE | 2025-03-25 12:25 | ECG ---
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
[2025-03-25 18:07] LABS: Vitamin B1, Whole Blood 57.9 nmol/L (66.5-200.0)
== END 2025-03-20 16:10 | DRG 871 ==
LOC: EDBD 09:35 → ER 09:35 → OVERFLOW 13:47 → TELE-CENTR 03-16 14:08
PROVIDERS: ADMIT Nurse Practitioner Acute Care; ATTEND Nurse Practitioner Acute Care
PROC: 30233N1 Transfusion of Nonautologous Red Blood Cells into Peripheral Vein, Percutaneous Approach (ICD-10-PCS; principal; 2025-03-16)
DX: A41.50 Gram-negative sepsis, unspecified (principal); I50.33 Acute on chronic diastolic (congestive) heart failure; J15.69 Pneumonia due to other Gram-negative bacteria; J96.21 Acute and chronic respiratory failure with hypoxia; J15.9 Unspecified bacterial pneumonia; N17.9 Acute kidney failure, unspecified; N18.4 Chronic kidney disease, stage 4 (severe); I13.0 Hypertensive heart and chronic kidney disease with heart failure and stage 1 through stage 4 chronic kidney disease, or unspecified chronic kidney disease; Z20.822 Contact with and (suspected) exposure to COVID-19; E78.5 Hyperlipidemia, unspecified; E66.9 Obesity, unspecified; E03.9 Hypothyroidism, unspecified; E11.22 Type 2 diabetes mellitus with diabetic chronic kidney disease; E87.5 Hyperkalemia; E11.649 Type 2 diabetes mellitus with hypoglycemia without coma; D64.9 Anemia, unspecified; Z79.84 Long term (current) use of oral hypoglycemic drugs; Z68.38 Body mass index [BMI] 38.0-38.9, adult; Z79.899 Other long term (current) drug therapy; Z86.73 Personal history of transient ischemic attack (TIA), and cerebral infarction without residual deficits
CPT/HCPCS: 36415; 36430; 36600; 70450; 71045; 71250; 76775; 80048; 80053; 80061; 81001; 82306; 82607; 82805; 82962; 83010; 83036; 83605; 83615; 83880; 84425; 84443; 84484; 85007; 85014; 85018; 85025; 85027; 85045; 85652; 86141; 86850; 86880; 86900; 86901; 86920; 87040; 87426; 87804; 93005; 93306; 94640; 96374; 96375; 97110; 97116; 97163; 97530; 99291; G0378; J1447; J1815; J7042